=== PATIENT | male | born 1960 | race African-American/Black ===

== ENCOUNTER 2020-06-09 06:03 | Inpatient (IN) | payer MEDICAID, OTHER ==
[~2020-06-09] VITALS: Ht 182.9 cm; Wt 92.6 kg
[2020-06-09] MEDS ORDERED: LEVETIRACETAM 1000MG/100ML 100 ML IV ONE (06:30)
[2020-06-09 06:45] LABS: BASOPHILS % 0.2 % (0.0-2.0); EOSINOPHILS % 0.8 % (0.0-5.0); HEMATOCRIT. 46.3 % (42.0-52.0); HEMOGLOBIN. 15.5 g/dL (14.0-18.0); LYMPHOCYTES % 12.6 % (20.0-50.0); MEAN CORPUSCULAR HEMOGLOBIN 31.2 pg (28.0-32.0); MEAN CORPUSCULAR VOLUME 92.9 fL (80.0-94.0); MONOCYTES % 9.5 % (2.0-8.0); NEUTROPHILS % 76.9 % (40.0-76.0); PLATELET 221 x1000/uL (130-400); RED BLOOD CELL COUNT 4.98 mill/uL (4.7-6.1); RED CELL DISTRIBUTION WIDTH 14.2 % (11.6-14.6)
[2020-06-09] MEDS ORDERED: LORAZEPAM 2MG/ML CPJ IV ONE ×4 (06:45→09:15)
[2020-06-09 06:54] LABS: CHLORIDE 110 mEq/L (98-107)
[2020-06-09 06:57] LABS: ETHANOL BLOOD < 10 mg/dL
[2020-06-09 07:02] LABS: CREATINE KINASE 471 IU/L (39-308)
[2020-06-09] MEDS ORDERED: LORAZEPAM 2MG/ML CPJ ONE (08:36)
[2020-06-09 09:01] LABS: CLARITY URINE CLEAR (CLEAR); COLOR URINE YELLOW (YELLOW); KETONES URINE NEGATIVE (NEGATIVE); LEUKOCYTE ESTERASE URINE NEGATIVE (NEGATIVE); NITRITE URINE NEGATIVE (NEGATIVE); OCCULT BLOOD URINE 2+ (NEGATIVE); PH URINE 5.5 (4.5-8.0); PROTEIN URINE 2+ (NEGATIVE); SPECIFIC GRAVITY URINE 1.019 (1.005-1.030); UROBILINOGEN URINE 0.2 E.U./dL (0.2-1.0)
[2020-06-09] MEDS ORDERED: MIDAZOLAM HCL 100 MG in DEXT 5% WATER 80 ML IV ONE ×2 (10:00→10:15)
[2020-06-09] MEDS ORDERED: MIDAZOLAM HCL 2 MG/2 ML VIAL IV ONE (10:00)
[2020-06-09] MEDS ORDERED: PHENOBARBITAL SODIUM 65MG/ML 1ML IV ONE (10:00)
[2020-06-09] MEDS ORDERED: ETOMIDATE 2MG/ML 10ML VIAL IV ONE ×2 (10:00)
[2020-06-09] MEDS ORDERED: SUCCINYLCHOLINE CHLORIDE 200MG/10ML IV ONE ×2 (10:00)
[2020-06-09] MEDS ORDERED: ONDANSETRON HCL 4MG/2ML INJ IV PRN (10:15)
[2020-06-09] MEDS ORDERED: PHENOBARBITAL SODIUM 65MG/ML 1ML IV NR (10:45)
[2020-06-09 10:53] LABS: PHOSPHORUS 1.9 mg/dL (2.5-4.9)
[2020-06-09] MEDS: SODIUM CHLORIDE 0.9% 1,000 ML IV SCH ×2 (11:02→14:09)
[2020-06-09 11:22] LABS: BG BASE EXCESS -1.9 mmol/L (-2.0-2.0); BG CARBOXYHEMOGLOBIN 0.2 % (0.5-1.5); BG DEOXYHEMOGLOBIN 2.4 % (0.0-5.0); BG HCO3 ACT 22.9 mmol/L (22.0-26.0); BG METHEMOGLOBIN 0.2 % (0.0-1.5); BG OXYGEN SATURATION 97.6 % (92.0-98.5); BG OXYHEMOGLOBIN 97.2 % (94.0-97.0); BG PCO2 39.6 mmHg (35.0-45.0); BG PO2 107.3 mmHg (75.0-100.0); BG SAMPLE SITE RIGHT RADIAL; BG VENT MODE VENT - AC
[2020-06-09] MEDS ORDERED: SUMATRIPTAN SUCCINATE 6MG/0.5ML VIAL SUBCUT ONE (11:30)
[2020-06-09] MEDS: ENOXAPARIN 40MG/0.4ML SYR SUBCUT SCH (11:35)
[2020-06-09] MEDS ORDERED: DEXTROSE 50% WATER 50ML SYRINGE IV PRN (11:45)
[2020-06-09] MEDS ORDERED: NICARDIPINE 40MG/200ML PREMIX 200 ML IV PRN (11:45)
[2020-06-09] MEDS ORDERED: MIDAZOLAM HCL 100 MG in DEXT 5% WATER 80 ML IV PRN (12:15)
[2020-06-09] MEDS ORDERED: IPRATROPIUM/ALBUTEROL 0.5-3(2.5)MG/3ML NEB HHN PRN (12:15)
[2020-06-09] MEDS: BLOOD SUGAR DIAGNOSTIC STRIP TEST SCH ×3 (13:01→21:30)
[2020-06-09] MEDS: INSULIN LISPRO 100 UNITS/ML SUBCUT SCH ×3 (13:02→18:09)
[2020-06-09] MEDS: PANTOPRAZOLE SODIUM 40 MG/VIAL IV SCH (13:48)
[2020-06-09] MEDS: LACTULOSE 20G/30ML UDC PO SCH (14:18)
[2020-06-09 15:03] LABS: *AMPHETAMINES SCREEN URINE NEGATIVE (NEGATIVE); *BARBITURATES SCREEN URINE PRESUMTIVE POSITIVE (NEGATIVE); *BENZODIAZEPINES SCREEN URINE PRESUMTIVE POSITIVE (NEGATIVE); *COCAINE SCREEN URINE PRESUMTIVE POSITIVE (NEGATIVE); METHADONE URINE SCREEN NEGATIVE (NEGATIVE); OPIATES URINE SCREEN NEGATIVE (NEGATIVE); PHENCYCLIDINE URINE SCREEN NEGATIVE (NEGATIVE)
[2020-06-09 15:04] LABS: CANNABINOID URINE SCREEN NEGATIVE (NEGATIVE)
[2020-06-09] MEDS: IPRATROPIUM/ALBUTEROL 0.5-3(2.5)MG/3ML NEB HHN SCH ×2 (15:53→21:57)
[2020-06-09] MEDS: CLONIDINE 0.1MG TABLET PO PRN (20:04)
[2020-06-10] MEDS ORDERED: LORAZEPAM 2MG/ML CPJ ONE (01:06)
[2020-06-10] MEDS: IPRATROPIUM/ALBUTEROL 0.5-3(2.5)MG/3ML NEB HHN SCH ×4 (01:21→21:16)
[2020-06-10] MEDS ORDERED: FENTANYL CITRATE/PF 1,000 MCG in SODIUM CHLORIDE 0.9% 100 ML IV PRN (01:30)
[2020-06-10 04:32] LABS: HEMATOCRIT. 46.2 % (42.0-52.0); HEMOGLOBIN. 15.9 g/dL (14.0-18.0); MEAN CORPUSCULAR HEMOGLOBIN 31.3 pg (28.0-32.0); MEAN CORPUSCULAR VOLUME 91.2 fL (80.0-94.0); MEAN PLATELET VOLUME 9.1 fl (7.4-10.4); PLATELET 219 x1000/uL (130-400); RED BLOOD CELL COUNT 5.06 mill/uL (4.7-6.1); RED CELL DISTRIBUTION WIDTH 13.8 % (11.6-14.6)
[2020-06-10 04:35] LABS: CHLORIDE 106 mEq/L (98-107)
[2020-06-10 04:43] LABS: LDL CHOLESTEROL 111 mg/dL (5-100)
[2020-06-10 04:44] LABS: HDL CHOLESTEROL 80 mg/dL (40-59)
[2020-06-10] MEDS: LACTULOSE 20G/30ML UDC PO SCH ×3 (06:07→22:30)
[2020-06-10] MEDS: BLOOD SUGAR DIAGNOSTIC STRIP TEST SCH ×4 (06:30→21:00)
[2020-06-10] MEDS: INSULIN LISPRO 100 UNITS/ML SUBCUT SCH ×4 (07:00→21:00)
[2020-06-10] MEDS: AMLODIPINE 5MG TABLET PO SCH (09:40)
[2020-06-10] MEDS: ENOXAPARIN 40MG/0.4ML SYR SUBCUT SCH (09:41)
[2020-06-10] MEDS: PANTOPRAZOLE SODIUM 40 MG/VIAL IV SCH (09:45)
[2020-06-10] MEDS ORDERED: LIDOCAINE HCL 1% 20ML VIAL (Pyxis) INJ ONE (10:58)
[2020-06-10 11:32] LABS: PLATELET ESTIMATE NORMAL
[2020-06-10] MEDS: ACETAMINOPHEN 650MG/20.3ML UDC GT PRN ×2 (12:40→14:08)
[2020-06-10] MEDS: PIPERACILLIN/TAZOBACTAM 3.375 G in DEXT 5% WATER 100 ML IV SCH ×2 (16:28→22:30)
[2020-06-10] MEDS ORDERED: NICARDIPINE 40MG/200ML PREMIX 200 ML IV PRN (19:30)
[2020-06-10] MEDS: HYDRALAZINE HCL 25MG TABLET PO SCH (22:00)
[2020-06-10] MEDS ORDERED: PIPERACILLIN/TAZOBACTAM 3.375 G/VIAL IV SCH (22:00)
[2020-06-10 23:09] VITALS: BP 132/78
[2020-06-10 23:23] VITALS: BP 133/72
[2020-06-10 23:38] VITALS: BP 137/76
[2020-06-11] VITALS (66 sets, daily range): BP systolic 130–160; BP diastolic 63–91
[2020-06-11] MEDS ORDERED: NICARDIPINE 50 MG in SODIUM CHLORIDE 0.9% 230 ML IV PRN (00:15)
[2020-06-11] MEDS: SODIUM CHLORIDE 0.9% 1,000 ML IV SCH ×2 (00:49→20:00)
[2020-06-11] MEDS ORDERED: ESCI10TA61 MT (01:50)
[2020-06-11] MEDS ORDERED: LOSA50TA41 MT (01:50)
[2020-06-11] MEDS ORDERED: TRAZ-251 PO (01:50)
[2020-06-11] MEDS ORDERED: SIMV-43 MT (01:50)
[2020-06-11] MEDS ORDERED: CYCL10TA7 MT (01:50)
[2020-06-11] MEDS: IPRATROPIUM/ALBUTEROL 0.5-3(2.5)MG/3ML NEB HHN SCH ×4 (02:12→20:49)
[2020-06-11] MEDS: MIDAZOLAM HCL 100 MG in DEXT 5% WATER 80 ML IV PRN (02:26)
[2020-06-11] MEDS: PIPERACILLIN/TAZOBACTAM 3.375 G in DEXT 5% WATER 100 ML IV SCH ×4 (03:12→21:38)
[2020-06-11] MEDS: LACTULOSE 20G/30ML UDC PO SCH ×3 (05:24→21:37)
[2020-06-11] MEDS: HYDRALAZINE HCL 25MG TABLET PO SCH (05:24)
[2020-06-11 05:47] LABS: HEMATOCRIT. 45.6 % (42.0-52.0); HEMOGLOBIN. 15.6 g/dL (14.0-18.0); MEAN CORPUSCULAR HEMOGLOBIN 31.4 pg (28.0-32.0); MEAN CORPUSCULAR VOLUME 91.9 fL (80.0-94.0); MEAN PLATELET VOLUME 9.4 fl (7.4-10.4); PLATELET 204 x1000/uL (130-400); RED BLOOD CELL COUNT 4.96 mill/uL (4.7-6.1); RED CELL DISTRIBUTION WIDTH 14.1 % (11.6-14.6)
[2020-06-11 05:50] LABS: CHLORIDE 109 mEq/L (98-107)
[2020-06-11] MEDS: BLOOD SUGAR DIAGNOSTIC STRIP TEST SCH ×4 (07:50→20:00)
[2020-06-11 08:11] LABS: BG SAMPLE SITE Right Radial; BG TIDAL VOLUME(mL) 500 mL; BG VENT RATE 14 set
[2020-06-11 08:12] LABS: BG PEEP (cmH2O) 0 cmH2O
[2020-06-11 08:14] LABS: BG HCO3 ACT 24.4 mmol/L (22.0-26.0); BG PCO2 37.1 mmHg (35.0-45.0); BG PH 7.436 (7.350-7.450); BG PO2 102.9 mmHg (75.0-100.0)
[2020-06-11] MEDS: INSULIN LISPRO 100 UNITS/ML SUBCUT SCH ×4 (08:20→20:00)
[2020-06-11 08:29] LABS: BG BASE EXCESS 2.2 mmol/L (-2.0-2.0); BG CARBOXYHEMOGLOBIN 0.1 % (0.5-1.5); BG DEOXYHEMOGLOBIN 2.6 % (0.0-5.0); BG FRACTION INSPIRED OXYGEN 40; BG HCO3 ACT 27.3 mmol/L (22.0-26.0); BG METHEMOGLOBIN 0.1 % (0.0-1.5); BG OXYGEN SATURATION 97.4 % (92.0-98.5); BG OXYHEMOGLOBIN 97.2 % (94.0-97.0); BG PCO2 43.6 mmHg (35.0-45.0); BG PH 7.414 (7.350-7.450); BG PO2 96.7 mmHg (75.0-100.0); BG TOTAL HEMOGLOBIN 16.2 g/dL (12.0-18.0); BG VENT MODE VENT - AC
[2020-06-11 08:43] LABS: BG BASE EXCESS 0.5 mmol/L (-2.0-2.0); BG TOTAL HEMOGLOBIN 15.3 g/dL (12.0-18.0)
[2020-06-11 08:44] LABS: BG CARBOXYHEMOGLOBIN 0.3 % (0.5-1.5); BG METHEMOGLOBIN 0.3 % (0.0-1.5); BG OXYHEMOGLOBIN 97.4 % (94.0-97.0)
[2020-06-11 08:55] LABS: BG FRACTION INSPIRED OXYGEN 40
[2020-06-11] MEDS: CLONIDINE 0.1MG TABLET PO PRN ×2 (09:09→15:55)
[2020-06-11] MEDS: ENOXAPARIN 40MG/0.4ML SYR SUBCUT SCH (09:09)
[2020-06-11] MEDS: PANTOPRAZOLE SODIUM 40 MG/VIAL IV SCH (09:09)
[2020-06-11] MEDS: AMLODIPINE 5MG TABLET PO SCH (09:10)
[2020-06-11 09:25] LABS: PLATELET ESTIMATE NORMAL
[2020-06-11] MEDS ORDERED: POTASSIUM CHLORIDE 20MEQ/PACKET PO NR (15:00)
[2020-06-11] MEDS: THIAMINE HCL 100MG TABLET PO SCH (15:55)
[2020-06-11] MEDS: HYDRALAZINE HCL 50MG TABLET PO SCH ×2 (15:56→21:37)
[2020-06-11] MEDS ORDERED: METHYLPREDNISOLONE SOD SUCC 40 MG/ML VIAL IV SCH (16:00)
[2020-06-11 17:26] LABS: HEPATITIS B SURFACE ANTIGEN NEGATIVE
[2020-06-11 17:56] LABS: HEPATITIS A AB IGM NEGATIVE (NEGATIVE)
[2020-06-11] MEDS ORDERED: MANNITOL 20% (20GM/100ML) BAG 500ML PREMIX IV NR (19:30)
[2020-06-11] MEDS: ATORVASTATIN CALCIUM 40MG TABLET PO SCH (20:00)
[2020-06-11] MEDS: LEVETIRACETAM 500MG PREMIX 100 ML IV SCH (20:00)
[2020-06-11] MEDS: DEXAMETHASONE 10 MG/ML VIAL IV SCH ×2 (20:00→23:22)
[2020-06-12] VITALS (66 sets, daily range): BP systolic 85–160; BP diastolic 52–97
[2020-06-12] MEDS: IPRATROPIUM/ALBUTEROL 0.5-3(2.5)MG/3ML NEB HHN SCH ×3 (01:17→20:28)
[2020-06-12] MEDS: PIPERACILLIN/TAZOBACTAM 3.375 G in DEXT 5% WATER 100 ML IV SCH ×4 (03:28→22:20)
[2020-06-12] MEDS: LACTULOSE 20G/30ML UDC PO SCH ×3 (05:16→21:18)
[2020-06-12] MEDS: HYDRALAZINE HCL 50MG TABLET PO SCH ×3 (05:19→21:19)
[2020-06-12] MEDS: DEXAMETHASONE 10 MG/ML VIAL IV SCH ×3 (05:19→17:52)
[2020-06-12 05:57] LABS: HEMOGLOBIN. 14.9 g/dL (14.0-18.0); MEAN CORPUSCULAR HEMOGLOBIN 31.4 pg (28.0-32.0); MEAN PLATELET VOLUME 9.4 fl (7.4-10.4); PLATELET 217 x1000/uL (130-400); RED BLOOD CELL COUNT 4.73 mill/uL (4.7-6.1); RED CELL DISTRIBUTION WIDTH 14.3 % (11.6-14.6)
[2020-06-12] MEDS ORDERED: BACITRACIN 50,000 UNITS/VIAL ONE (07:28)
[2020-06-12] MEDS ORDERED: THROMBIN (BOVINE) 5000 UNITS/VIAL TOP ONE (07:28)
[2020-06-12 07:59] LABS: PLATELET ESTIMATE NORMAL
[2020-06-12] MEDS: AMLODIPINE 5MG TABLET PO SCH (08:08)
[2020-06-12] MEDS ORDERED: ROCURONIUM BROMIDE 10MG/ML VIAL 5ML IV ONE ×2 (08:27→09:19)
[2020-06-12] MEDS ORDERED: FENTANYL CITRATE/PF 50MCG/ML 2ML VIAL ONE ×2 (08:33→09:45)
[2020-06-12] MEDS ORDERED: CEFAZOLIN SODIUM 1000MG/VIAL ONE (08:43)
[2020-06-12] MEDS ORDERED: LABETALOL HCL 5MG/ML VIAL 20ML IV ONE (08:43)
[2020-06-12] MEDS ORDERED: DEXT 5%/0.45% NACL 1000ML 1,000 ML IV SCH (09:00)
[2020-06-12] MEDS ORDERED: DEXT 5%/LACTATED RINGERS 1,000 ML IV SCH (09:00)
[2020-06-12] MEDS ORDERED: PROPOFOL 200MG/20ML VIAL IV ONE (09:45)
[2020-06-12] MEDS ORDERED: BACITRACIN 15GM TUBE TOP ONE (09:55)
[2020-06-12 11:22] LABS: BG BASE EXCESS -3.4 mmol/L (-2.0-2.0); BG CARBOXYHEMOGLOBIN 0.3 % (0.5-1.5); BG DEOXYHEMOGLOBIN 3.4 % (0.0-5.0); BG FRACTION INSPIRED OXYGEN 40; BG METHEMOGLOBIN 0.2 % (0.0-1.5); BG OXYGEN SATURATION 96.6 % (92.0-98.5); BG OXYHEMOGLOBIN 96.1 % (94.0-97.0); BG PCO2 46.3 mmHg (35.0-45.0); BG PH 7.314 (7.350-7.450); BG PO2 96.3 mmHg (75.0-100.0); BG SAMPLE SITE ALINE; BG TOTAL HEMOGLOBIN 13.7 g/dL (12.0-18.0); BG VENT MODE VENT - AC
[2020-06-12] MEDS: BLOOD SUGAR DIAGNOSTIC STRIP TEST SCH ×2 (11:25→17:09)
[2020-06-12] MEDS: INSULIN LISPRO 100 UNITS/ML SUBCUT SCH ×2 (11:37→17:54)
[2020-06-12] MEDS: PANTOPRAZOLE SODIUM 40 MG/VIAL IV SCH (11:37)
[2020-06-12] MEDS: LEVETIRACETAM 500MG PREMIX 100 ML IV SCH ×2 (12:36→22:20)
[2020-06-12] MEDS: THIAMINE HCL 100MG TABLET PO SCH (12:41)
[2020-06-12] MEDS ORDERED: CEFAZOLIN SODIUM 1000MG/VIAL IV SCH (14:00)
[2020-06-12] MEDS: MIDAZOLAM HCL 100 MG in DEXT 5% WATER 80 ML IV PRN (14:28)
[2020-06-12] MEDS: CEFAZOLIN 1000MG PREMIX 50 ML IV SCH ×2 (14:43→21:17)
[2020-06-12] MEDS: ATORVASTATIN CALCIUM 40MG TABLET PO SCH (21:00)
[2020-06-13] VITALS (91 sets, daily range): BP systolic 4–183; BP diastolic 4–129
[2020-06-13] MEDS: BLOOD SUGAR DIAGNOSTIC STRIP TEST SCH ×5 (00:31→23:34)
[2020-06-13] MEDS: DEXAMETHASONE 10 MG/ML VIAL IV SCH ×5 (00:35→23:34)
[2020-06-13] MEDS: INSULIN LISPRO 100 UNITS/ML SUBCUT SCH ×5 (00:36→23:35)
[2020-06-13] MEDS ORDERED: VANCOMYCIN 1 G PREMIX 200 ML IV SCH ×2 (02:00→21:00)
[2020-06-13] MEDS: IPRATROPIUM/ALBUTEROL 0.5-3(2.5)MG/3ML NEB HHN SCH ×4 (02:19→20:03)
[2020-06-13] MEDS: PIPERACILLIN/TAZOBACTAM 3.375 G in DEXT 5% WATER 100 ML IV SCH ×4 (04:30→22:05)
[2020-06-13 05:40] LABS: HEMATOCRIT. 40.8 % (42.0-52.0); HEMOGLOBIN. 13.5 g/dL (14.0-18.0); MEAN CORPUSCULAR HEMOGLOBIN 31.1 pg (28.0-32.0); MEAN PLATELET VOLUME 9.6 fl (7.4-10.4); PLATELET 217 x1000/uL (130-400); RED BLOOD CELL COUNT 4.34 mill/uL (4.7-6.1); RED CELL DISTRIBUTION WIDTH 14.7 % (11.6-14.6)
[2020-06-13] MEDS: CEFAZOLIN 1000MG PREMIX 50 ML IV SCH ×3 (06:38→21:40)
[2020-06-13] MEDS: LACTULOSE 20G/30ML UDC PO SCH ×3 (06:38→22:06)
[2020-06-13] MEDS: HYDRALAZINE HCL 50MG TABLET PO SCH ×3 (06:42→22:04)
[2020-06-13] MEDS: LEVETIRACETAM 500MG PREMIX 100 ML IV SCH ×2 (08:58→20:28)
[2020-06-13] MEDS: PANTOPRAZOLE SODIUM 40 MG/VIAL IV SCH (08:58)
[2020-06-13] MEDS: AMLODIPINE 5MG TABLET PO SCH (09:00)
[2020-06-13] MEDS: THIAMINE HCL 100MG TABLET PO SCH (09:00)
[2020-06-13 09:16] LABS: BG BASE EXCESS -0.1 mmol/L (-2.0-2.0); BG CARBOXYHEMOGLOBIN 0.1 % (0.5-1.5); BG DEOXYHEMOGLOBIN 2.7 % (0.0-5.0); BG FRACTION INSPIRED OXYGEN 40; BG HCO3 ACT 23.2 mmol/L (22.0-26.0); BG METHEMOGLOBIN 0.2 % (0.0-1.5); BG OXYGEN SATURATION 97.3 % (92.0-98.5); BG PH 7.452 (7.350-7.450); BG PO2 93.3 mmHg (75.0-100.0); BG SAMPLE SITE LEFT RADIAL; BG TOTAL HEMOGLOBIN 13.8 g/dL (12.0-18.0); BG VENT MODE VENT - AC
[2020-06-13] MEDS: NICARDIPINE 100 MG in SODIUM CHLORIDE 0.9% 60 ML IV PRN ×2 (10:44→17:16)
[2020-06-13] MEDS: MIDAZOLAM HCL 100 MG in DEXT 5% WATER 80 ML IV PRN (10:45)
[2020-06-13] MEDS: DEXT 5%/0.45% NACL 1000ML 1,000 ML IV SCH ×2 (10:50→20:28)
[2020-06-13 11:00] LABS: PLATELET ESTIMATE NORMAL
[2020-06-13] MEDS: MORPHINE SULFATE 4 MG/ML CPJ (NOT FOR IM USE) IV PRN (13:56)
[2020-06-13] MEDS ORDERED: VANCOMYCIN 750 MG PREMIX 150 ML IV SCH (14:00)
[2020-06-13 17:02] LABS: CLARITY URINE CLEAR (CLEAR); COLOR URINE YELLOW (YELLOW); KETONES URINE NEGATIVE (NEGATIVE); LEUKOCYTE ESTERASE URINE NEGATIVE (NEGATIVE); NITRITE URINE NEGATIVE (NEGATIVE); OCCULT BLOOD URINE TRACE (NEGATIVE); PROTEIN URINE 1+ (NEGATIVE); SPECIFIC GRAVITY URINE 1.026 (1.005-1.030); UROBILINOGEN URINE 0.2 E.U./dL (0.2-1.0)
[2020-06-13] MEDS: PROPOFOL 10MG/ML 100ML 100 ML IV PRN (17:15)
[2020-06-13] MEDS: ATORVASTATIN CALCIUM 40MG TABLET PO SCH (20:28)
[2020-06-14] VITALS (114 sets, daily range): BP systolic 80–162; BP diastolic 54–100
[2020-06-14] MEDS: NICARDIPINE 100 MG in SODIUM CHLORIDE 0.9% 60 ML IV PRN ×4 (01:07→23:29)
[2020-06-14] MEDS: IPRATROPIUM/ALBUTEROL 0.5-3(2.5)MG/3ML NEB HHN SCH ×4 (01:34→21:29)
[2020-06-14] MEDS: PIPERACILLIN/TAZOBACTAM 3.375 G in DEXT 5% WATER 100 ML IV SCH ×2 (04:03→10:24)
[2020-06-14 05:00] LABS: HEMATOCRIT. 38.1 % (42.0-52.0); HEMOGLOBIN. 12.7 g/dL (14.0-18.0); MEAN CORPUSCULAR HEMOGLOBIN 31.4 pg (28.0-32.0); MEAN CORPUSCULAR VOLUME 94.3 fL (80.0-94.0); MEAN PLATELET VOLUME 9.7 fl (7.4-10.4); PLATELET 194 x1000/uL (130-400); RED BLOOD CELL COUNT 4.03 mill/uL (4.7-6.1); RED CELL DISTRIBUTION WIDTH 14.3 % (11.6-14.6)
[2020-06-14 05:07] LABS: CHLORIDE 119 mEq/L (98-107)
[2020-06-14 05:11] LABS: PHOSPHORUS 3.6 mg/dL (2.5-4.9)
[2020-06-14 05:14] LABS: CREATINE KINASE 716 IU/L (39-308); T4 FREE 0.89 ng/dL (0.76-1.46)
[2020-06-14] MEDS: CEFAZOLIN 1000MG PREMIX 50 ML IV SCH (05:14)
[2020-06-14] MEDS: BLOOD SUGAR DIAGNOSTIC STRIP TEST SCH ×4 (05:19→23:04)
[2020-06-14] MEDS: INSULIN LISPRO 100 UNITS/ML SUBCUT SCH ×4 (05:19→23:30)
[2020-06-14] MEDS: HYDRALAZINE HCL 50MG TABLET PO SCH ×3 (05:55→21:03)
[2020-06-14] MEDS: LACTULOSE 20G/30ML UDC PO SCH ×3 (05:55→21:03)
[2020-06-14] MEDS: DEXAMETHASONE 10 MG/ML VIAL IV SCH ×4 (05:55→23:29)
[2020-06-14] MEDS: DEXT 5%/0.45% NACL 1000ML 1,000 ML IV SCH ×2 (06:10→17:17)
[2020-06-14] MEDS: PROPOFOL 10MG/ML 100ML 100 ML IV PRN ×4 (06:44→23:45)
[2020-06-14] MEDS: THIAMINE HCL 100MG TABLET PO SCH (08:32)
[2020-06-14] MEDS: PANTOPRAZOLE SODIUM 40 MG/VIAL IV SCH (08:33)
[2020-06-14] MEDS: AMLODIPINE 5MG TABLET PO SCH (08:33)
[2020-06-14] MEDS: LEVETIRACETAM 500MG PREMIX 100 ML IV SCH ×2 (08:36→20:41)
[2020-06-14 08:56] LABS: BG BASE EXCESS -0.1 mmol/L (-2.0-2.0); BG CARBOXYHEMOGLOBIN 0.1 % (0.5-1.5); BG DEOXYHEMOGLOBIN 2.9 % (0.0-5.0); BG FRACTION INSPIRED OXYGEN 60; BG HCO3 ACT 23.8 mmol/L (22.0-26.0); BG METHEMOGLOBIN 0.3 % (0.0-1.5); BG OXYGEN SATURATION 97.1 % (92.0-98.5); BG OXYHEMOGLOBIN 96.7 % (94.0-97.0); BG PCO2 36.5 mmHg (35.0-45.0); BG PH 7.432 (7.350-7.450); BG PO2 94.1 mmHg (75.0-100.0); BG SAMPLE SITE LEFT RADIAL; BG TOTAL HEMOGLOBIN 13.4 g/dL (12.0-18.0); BG VENT MODE VENT - AC
[2020-06-14 09:06] LABS: ANTI-NUCLEAR ANTIBODIES DIRECT Negative (Negative)
[2020-06-14] MEDS: MORPHINE SULFATE 4 MG/ML CPJ (NOT FOR IM USE) IV PRN ×2 (09:16→15:12)
[2020-06-14 09:58] LABS: PLATELET ESTIMATE NORMAL
[2020-06-14 14:34] LABS: BG BASE EXCESS 1.5 mmol/L (-2.0-2.0); BG CARBOXYHEMOGLOBIN 0.6 % (0.5-1.5); BG DEOXYHEMOGLOBIN 4.9 % (0.0-5.0); BG FRACTION INSPIRED OXYGEN 80; BG HCO3 ACT 25.3 mmol/L (22.0-26.0); BG METHEMOGLOBIN 0.1 % (0.0-1.5); BG OXYGEN SATURATION 95.1 % (92.0-98.5); BG OXYHEMOGLOBIN 94.4 % (94.0-97.0); BG PH 7.452 (7.350-7.450); BG SAMPLE SITE ALINE; BG TOTAL HEMOGLOBIN 12.8 g/dL (12.0-18.0); BG VENT MODE VENT - AC
[2020-06-14 15:08] LABS: ATYPICAL P-ANCA <1:20 titer (Neg:<1:20); CYTOPLASMIC C-ANCA <1:20 titer (Neg:<1:20); PERINUCLEAR P-ANCA <1:20 titer (Neg:<1:20)
[2020-06-14] MEDS: MEROPENEM 1,000 MG in SODIUM CHLORIDE 0.9% 100 ML IV SCH ×2 (15:21→21:03)
[2020-06-14] MEDS: ATORVASTATIN CALCIUM 40MG TABLET PO SCH (20:42)
[2020-06-15] VITALS (95 sets, daily range): BP systolic 0–154; BP diastolic 0–93
[2020-06-15] MEDS: IPRATROPIUM/ALBUTEROL 0.5-3(2.5)MG/3ML NEB HHN SCH ×4 (02:47→19:45)
[2020-06-15] MEDS: NICARDIPINE 100 MG in SODIUM CHLORIDE 0.9% 60 ML IV PRN ×3 (04:07→18:28)
[2020-06-15] MEDS: PROPOFOL 10MG/ML 100ML 100 ML IV PRN ×5 (04:10→21:40)
[2020-06-15 04:30] LABS: HEMATOCRIT. 37.7 % (42.0-52.0); HEMOGLOBIN. 12.8 g/dL (14.0-18.0); MEAN CORPUSCULAR HEMOGLOBIN 31.4 pg (28.0-32.0); MEAN CORPUSCULAR VOLUME 92.6 fL (80.0-94.0); MEAN PLATELET VOLUME 9.6 fl (7.4-10.4); PLATELET 244 x1000/uL (130-400); RED BLOOD CELL COUNT 4.07 mill/uL (4.7-6.1); RED CELL DISTRIBUTION WIDTH 14.6 % (11.6-14.6)
[2020-06-15] MEDS: DEXAMETHASONE 10 MG/ML VIAL IV SCH ×4 (06:00→23:26)
[2020-06-15] MEDS: BLOOD SUGAR DIAGNOSTIC STRIP TEST SCH ×4 (06:07→23:26)
[2020-06-15] MEDS: LACTULOSE 20G/30ML UDC PO SCH ×3 (06:21→21:40)
[2020-06-15] MEDS: MEROPENEM 1,000 MG in SODIUM CHLORIDE 0.9% 100 ML IV SCH ×3 (06:21→21:41)
[2020-06-15] MEDS: HYDRALAZINE HCL 50MG TABLET PO SCH ×3 (06:21→21:40)
[2020-06-15] MEDS: INSULIN LISPRO 100 UNITS/ML SUBCUT SCH ×4 (06:22→23:27)
[2020-06-15] MEDS: DEXT 5%/0.45% NACL 1000ML 1,000 ML IV SCH ×2 (08:01→21:52)
[2020-06-15] MEDS: AMLODIPINE 5MG TABLET PO SCH (08:35)
[2020-06-15] MEDS: PANTOPRAZOLE SODIUM 40 MG/VIAL IV SCH (08:36)
[2020-06-15] MEDS: THIAMINE HCL 100MG TABLET PO SCH (08:41)
[2020-06-15 09:07] LABS: CHLORIDE 119 mEq/L (98-107)
[2020-06-15 09:13] LABS: PHOSPHORUS 2.3 mg/dL (2.5-4.9)
[2020-06-15 09:15] LABS: BG BASE EXCESS -0.3 mmol/L (-2.0-2.0); BG CARBOXYHEMOGLOBIN 0.2 % (0.5-1.5); BG DEOXYHEMOGLOBIN 4.2 % (0.0-5.0); BG FRACTION INSPIRED OXYGEN 80; BG HCO3 ACT 22.9 mmol/L (22.0-26.0); BG METHEMOGLOBIN 0.3 % (0.0-1.5); BG OXYGEN SATURATION 95.8 % (92.0-98.5); BG OXYHEMOGLOBIN 95.3 % (94.0-97.0); BG PCO2 32.9 mmHg (35.0-45.0); BG PO2 78.5 mmHg (75.0-100.0); BG SAMPLE SITE RIGHT RADIAL; BG TOTAL HEMOGLOBIN 13.3 g/dL (12.0-18.0); BG VENT MODE VENT - AC
[2020-06-15] MEDS: LEVETIRACETAM 500MG PREMIX 100 ML IV SCH ×2 (09:39→20:48)
[2020-06-15 14:50] LABS: PLATELET ESTIMATE NORMAL
[2020-06-15] MEDS: ATORVASTATIN CALCIUM 40MG TABLET PO SCH (20:48)
[2020-06-15] MEDS: CLONIDINE 0.1MG TABLET PO SCH (21:40)
[2020-06-16] VITALS (93 sets, daily range): BP systolic 112–149; BP diastolic 61–80
[2020-06-16] MEDS: PROPOFOL 10MG/ML 100ML 100 ML IV PRN ×6 (01:05→21:23)
[2020-06-16] MEDS: IPRATROPIUM/ALBUTEROL 0.5-3(2.5)MG/3ML NEB HHN SCH ×5 (02:09→20:22)
[2020-06-16] MEDS: NICARDIPINE 100 MG in SODIUM CHLORIDE 0.9% 60 ML IV PRN ×2 (02:45→17:49)
[2020-06-16 05:49] LABS: HEMATOCRIT. 35.2 % (42.0-52.0); HEMOGLOBIN. 11.7 g/dL (14.0-18.0); MEAN CORPUSCULAR HEMOGLOBIN 31.1 pg (28.0-32.0); MEAN CORPUSCULAR VOLUME 93.5 fL (80.0-94.0); PLATELET 173 x1000/uL (130-400); RED BLOOD CELL COUNT 3.77 mill/uL (4.7-6.1); RED CELL DISTRIBUTION WIDTH 14.3 % (11.6-14.6)
[2020-06-16] MEDS: MEROPENEM 1,000 MG in SODIUM CHLORIDE 0.9% 100 ML IV SCH ×3 (06:10→21:39)
[2020-06-16] MEDS: CLONIDINE 0.1MG TABLET PO SCH ×3 (06:11→21:39)
[2020-06-16] MEDS: LACTULOSE 20G/30ML UDC PO SCH ×3 (06:11→21:40)
[2020-06-16] MEDS: HYDRALAZINE HCL 50MG TABLET PO SCH ×3 (06:11→21:39)
[2020-06-16] MEDS: BLOOD SUGAR DIAGNOSTIC STRIP TEST SCH ×4 (06:11→23:21)
[2020-06-16] MEDS: INSULIN LISPRO 100 UNITS/ML SUBCUT SCH ×4 (06:12→23:22)
[2020-06-16] MEDS: DEXAMETHASONE 10 MG/ML VIAL IV SCH ×4 (06:14→23:21)
[2020-06-16 06:45] LABS: CHLORIDE 118 mEq/L (98-107)
[2020-06-16 06:51] LABS: PHOSPHORUS 3.5 mg/dL (2.5-4.9)
[2020-06-16] MEDS: LEVETIRACETAM 500MG PREMIX 100 ML IV SCH ×2 (08:21→20:16)
[2020-06-16] MEDS: AMLODIPINE 5MG TABLET PO SCH (08:21)
[2020-06-16] MEDS: PANTOPRAZOLE SODIUM 40 MG/VIAL IV SCH (08:21)
[2020-06-16] MEDS: THIAMINE HCL 100MG TABLET PO SCH (08:22)
[2020-06-16 09:14] LABS: PLATELET ESTIMATE NORMAL
[2020-06-16 09:35] LABS: BG BASE EXCESS -0.2 mmol/L (-2.0-2.0); BG CARBOXYHEMOGLOBIN 0.2 % (0.5-1.5); BG DEOXYHEMOGLOBIN 1.5 % (0.0-5.0); BG FRACTION INSPIRED OXYGEN 75; BG HCO3 ACT 23.3 mmol/L (22.0-26.0); BG METHEMOGLOBIN 0.3 % (0.0-1.5); BG OXYGEN SATURATION 98.5 % (92.0-98.5); BG PCO2 34.4 mmHg (35.0-45.0); BG PH 7.449 (7.350-7.450); BG PO2 132.7 mmHg (75.0-100.0); BG SAMPLE SITE LEFT RADIAL; BG TOTAL HEMOGLOBIN 12.1 g/dL (12.0-18.0); BG VENT MODE VENT - AC
[2020-06-16] MEDS: DEXT 5%/0.45% NACL 1000ML 1,000 ML IV SCH ×2 (12:31→22:29)
[2020-06-16 17:09] LABS: ANTI-MYELOPEROXIDASE AB < 9.0 U/mL (0.0-9.0); ANTI-PROTEINASE 3 ABS < 3.5 U/mL (0.0-3.5)
[2020-06-16] MEDS: ATORVASTATIN CALCIUM 40MG TABLET PO SCH (20:16)
[2020-06-17] VITALS (95 sets, daily range): BP systolic 93–162; BP diastolic 62–95
[2020-06-17] MEDS: PROPOFOL 10MG/ML 100ML 100 ML IV PRN ×5 (00:52→21:04)
[2020-06-17] MEDS: NICARDIPINE 100 MG in SODIUM CHLORIDE 0.9% 60 ML IV PRN ×2 (01:39→09:26)
[2020-06-17] MEDS: IPRATROPIUM/ALBUTEROL 0.5-3(2.5)MG/3ML NEB HHN SCH ×4 (02:05→21:24)
[2020-06-17] MEDS: DEXAMETHASONE 10 MG/ML VIAL IV SCH ×4 (05:17→23:40)
[2020-06-17] MEDS: MEROPENEM 1,000 MG in SODIUM CHLORIDE 0.9% 100 ML IV SCH ×3 (05:17→21:06)
[2020-06-17] MEDS: LACTULOSE 20G/30ML UDC PO SCH ×3 (05:17→21:04)
[2020-06-17] MEDS: CLONIDINE 0.1MG TABLET PO SCH ×2 (05:17→14:00)
[2020-06-17] MEDS: HYDRALAZINE HCL 50MG TABLET PO SCH ×3 (05:17→21:05)
[2020-06-17] MEDS: BLOOD SUGAR DIAGNOSTIC STRIP TEST SCH ×3 (05:18→17:21)
[2020-06-17] MEDS: INSULIN LISPRO 100 UNITS/ML SUBCUT SCH ×4 (05:18→23:41)
[2020-06-17 05:44] LABS: HEMATOCRIT. 35.7 % (42.0-52.0); HEMOGLOBIN. 11.9 g/dL (14.0-18.0); MEAN CORPUSCULAR HEMOGLOBIN 31.3 pg (28.0-32.0); MEAN CORPUSCULAR VOLUME 93.9 fL (80.0-94.0); MEAN PLATELET VOLUME 9.9 fl (7.4-10.4); PLATELET 196 x1000/uL (130-400); RED CELL DISTRIBUTION WIDTH 14.5 % (11.6-14.6)
[2020-06-17 05:58] LABS: CHLORIDE 117 mEq/L (98-107)
[2020-06-17 06:12] LABS: PHOSPHORUS 3.2 mg/dL (2.5-4.9)
[2020-06-17 06:53] LABS: CREATINE KINASE 1863 IU/L (39-308)
[2020-06-17] MEDS: LEVETIRACETAM 500MG PREMIX 100 ML IV SCH ×2 (08:21→20:15)
[2020-06-17] MEDS: THIAMINE HCL 100MG TABLET PO SCH (08:21)
[2020-06-17] MEDS: PANTOPRAZOLE SODIUM 40 MG/VIAL IV SCH (08:21)
[2020-06-17] MEDS: METOCLOPRAMIDE HCL 10MG/2ML VIAL IV SCH ×3 (08:26→21:04)
[2020-06-17] MEDS: DEXT 5%/0.45% NACL 1000ML 1,000 ML IV SCH ×2 (08:26→17:04)
[2020-06-17 08:47] LABS: BG BASE EXCESS -1.5 mmol/L (-2.0-2.0); BG CARBOXYHEMOGLOBIN 0.3 % (0.5-1.5); BG FRACTION INSPIRED OXYGEN 75; BG HCO3 ACT 22.4 mmol/L (22.0-26.0); BG METHEMOGLOBIN 0.3 % (0.0-1.5); BG OXYHEMOGLOBIN 97.4 % (94.0-97.0); BG PCO2 35.3 mmHg (35.0-45.0); BG PH 7.421 (7.350-7.450); BG PO2 123.2 mmHg (75.0-100.0); BG SAMPLE SITE RIGHT RADIAL; BG TOTAL HEMOGLOBIN 12.2 g/dL (12.0-18.0); BG VENT MODE VENT - AC
[2020-06-17] MEDS ORDERED: AMLODIPINE 10MG TABLET PO SCH (09:00)
[2020-06-17] MEDS ORDERED: ALBUTEROL 6.7GM HFA INHALER ORI PRN (11:45)
[2020-06-17 11:56] LABS: PLATELET ESTIMATE NORMAL
[2020-06-17] MEDS ORDERED: DILTIAZEM HCL 5MG/ML 5ML VIAL IV SCH (13:45)
[2020-06-17] MEDS ORDERED: AMIODARONE HCL 50MG/ML 3ML VIAL IV ONE (14:45)
[2020-06-17] MEDS: METOPROLOL TARTRATE 25MG TABLET PO SCH ×2 (14:51→20:16)
[2020-06-17] MEDS ORDERED: AMIODARONE HCL 150 MG in DEXT 5% WATER 100 ML IV NR (15:00)
[2020-06-17] MEDS ORDERED: AMIODARONE HCL 900 MG in DEXT 5% WATER 482 ML IV PRN (17:00)
[2020-06-17] MEDS: ATORVASTATIN CALCIUM 40MG TABLET PO SCH (20:16)
[2020-06-17] MEDS: CLONIDINE 0.2MG TABLET PO SCH (21:05)
[2020-06-18] VITALS (91 sets, daily range): BP systolic 99–157; BP diastolic 55–99
[2020-06-18] MEDS: BLOOD SUGAR DIAGNOSTIC STRIP TEST SCH ×5 (00:10→20:41)
[2020-06-18] MEDS: PROPOFOL 10MG/ML 100ML 100 ML IV PRN ×5 (01:25→22:46)
[2020-06-18] MEDS: IPRATROPIUM/ALBUTEROL 0.5-3(2.5)MG/3ML NEB HHN SCH ×4 (02:34→20:11)
[2020-06-18] MEDS: LACTULOSE 20G/30ML UDC PO SCH ×3 (04:58→21:09)
[2020-06-18] MEDS: MEROPENEM 1,000 MG in SODIUM CHLORIDE 0.9% 100 ML IV SCH ×3 (04:58→21:08)
[2020-06-18] MEDS: DEXAMETHASONE 10 MG/ML VIAL IV SCH ×3 (04:59→17:31)
[2020-06-18] MEDS: METOCLOPRAMIDE HCL 10MG/2ML VIAL IV SCH ×3 (04:59→21:08)
[2020-06-18] MEDS: HYDRALAZINE HCL 50MG TABLET PO SCH ×3 (05:00→21:09)
[2020-06-18] MEDS: CLONIDINE 0.2MG TABLET PO SCH ×3 (05:00→21:09)
[2020-06-18] MEDS: INSULIN LISPRO 100 UNITS/ML SUBCUT SCH ×3 (05:02→17:32)
[2020-06-18 05:05] LABS: HEMOGLOBIN. 11.6 g/dL (14.0-18.0); MEAN PLATELET VOLUME 9.6 fl (7.4-10.4); PLATELET 198 x1000/uL (130-400); RED BLOOD CELL COUNT 3.72 mill/uL (4.7-6.1); RED CELL DISTRIBUTION WIDTH 14.8 % (11.6-14.6)
[2020-06-18 05:16] LABS: CHLORIDE 121 mEq/L (98-107)
[2020-06-18 05:21] LABS: PHOSPHORUS 3.1 mg/dL (2.5-4.9)
[2020-06-18 07:30] LABS: BG BASE EXCESS 1.5 mmol/L (-2.0-2.0); BG CARBOXYHEMOGLOBIN 0.3 % (0.5-1.5); BG DEOXYHEMOGLOBIN 2.9 % (0.0-5.0); BG HCO3 ACT 25.6 mmol/L (22.0-26.0); BG METHEMOGLOBIN 0.2 % (0.0-1.5); BG OXYGEN SATURATION 97.1 % (92.0-98.5); BG OXYHEMOGLOBIN 96.6 % (94.0-97.0); BG PCO2 38.6 mmHg (35.0-45.0); BG PO2 95.5 mmHg (75.0-100.0); BG SAMPLE SITE RIGHT RADIAL; BG TOTAL HEMOGLOBIN 13.1 g/dL (12.0-18.0); BG TOTAL RESPIRATORY RATE 16 b/min; BG VENT MODE VENT - AC
[2020-06-18 08:36] LABS: PLATELET ESTIMATE NORMAL
[2020-06-18] MEDS: LEVETIRACETAM 500MG PREMIX 100 ML IV SCH ×2 (08:57→20:23)
[2020-06-18] MEDS: AMLODIPINE 5MG TABLET PO SCH (08:57)
[2020-06-18] MEDS: THIAMINE HCL 100MG TABLET PO SCH (08:58)
[2020-06-18] MEDS: PANTOPRAZOLE SODIUM 40 MG/VIAL IV SCH (08:58)
[2020-06-18] MEDS ORDERED: METOPROLOL TARTRATE 50MG TABLET PO SCH (09:00)
[2020-06-18] MEDS: DEXTROSE 5% WATER 1,000 ML IV SCH (09:04)
[2020-06-18] MEDS: NICARDIPINE 100 MG in SODIUM CHLORIDE 0.9% 60 ML IV PRN (13:00)
[2020-06-18] MEDS: ACETYLCYSTEINE 100MG/ML 10% VIAL 4ML INH SCH (14:52)
[2020-06-18] MEDS ORDERED: DEXTROSE 50% WATER 50ML SYRINGE IV PRN (17:15)
[2020-06-18] MEDS: METOPROLOL TARTRATE 50MG TABLET PO SCH (20:24)
[2020-06-18] MEDS: ATORVASTATIN CALCIUM 40MG TABLET PO SCH (20:24)
[2020-06-18] MEDS ORDERED: PROPOFOL 10MG/ML 100ML 100 ML IV PRN (22:45)
[2020-06-19] VITALS (125 sets, daily range): BP systolic 94–227; BP diastolic 20–143
[2020-06-19] MEDS: DEXAMETHASONE 10 MG/ML VIAL IV SCH ×4 (00:13→17:07)
[2020-06-19] MEDS: DEXTROSE 5% WATER 1,000 ML IV SCH ×2 (00:14→12:15)
[2020-06-19] MEDS: INSULIN LISPRO 100 UNITS/ML SUBCUT SCH ×4 (00:14→17:18)
[2020-06-19] MEDS: ACETYLCYSTEINE 100MG/ML 10% VIAL 4ML INH SCH (00:50)
[2020-06-19] MEDS: IPRATROPIUM/ALBUTEROL 0.5-3(2.5)MG/3ML NEB HHN SCH ×4 (00:50→20:15)
[2020-06-19 05:40] LABS: HEMATOCRIT. 36.5 % (42.0-52.0); MEAN CORPUSCULAR VOLUME 94.4 fL (80.0-94.0); MEAN PLATELET VOLUME 10.5 fl (7.4-10.4); PLATELET 189 x1000/uL (130-400); RED BLOOD CELL COUNT 3.86 mill/uL (4.7-6.1); RED CELL DISTRIBUTION WIDTH 14.6 % (11.6-14.6)
[2020-06-19 05:48] LABS: CHLORIDE 118 mEq/L (98-107)
[2020-06-19 05:53] LABS: PHOSPHORUS 3.5 mg/dL (2.5-4.9)
[2020-06-19] MEDS: HYDRALAZINE HCL 50MG TABLET PO SCH ×3 (06:05→22:13)
[2020-06-19] MEDS: LACTULOSE 20G/30ML UDC PO SCH ×3 (06:05→20:23)
[2020-06-19] MEDS: CLONIDINE 0.2MG TABLET PO SCH ×3 (06:05→22:13)
[2020-06-19] MEDS: MEROPENEM 1,000 MG in SODIUM CHLORIDE 0.9% 100 ML IV SCH ×3 (06:05→22:20)
[2020-06-19] MEDS: BLOOD SUGAR DIAGNOSTIC STRIP TEST SCH ×4 (06:08→20:22)
[2020-06-19] MEDS: METOCLOPRAMIDE HCL 10MG/2ML VIAL IV SCH ×3 (06:08→22:13)
[2020-06-19] MEDS ORDERED: AMIODARONE HCL 900 MG in DEXT 5% WATER 482 ML IV PRN (08:30)
[2020-06-19] MEDS: AMLODIPINE 5MG TABLET PO SCH (08:40)
[2020-06-19] MEDS: PANTOPRAZOLE SODIUM 40 MG/VIAL IV SCH ×2 (08:40→17:07)
[2020-06-19] MEDS: THIAMINE HCL 100MG TABLET PO SCH (08:40)
[2020-06-19] MEDS: LEVETIRACETAM 500MG PREMIX 100 ML IV SCH ×2 (08:40→20:20)
[2020-06-19] MEDS: METOPROLOL TARTRATE 50MG TABLET PO SCH ×3 (08:41→22:00)
[2020-06-19] MEDS: PROPOFOL 10MG/ML 100ML 100 ML IV PRN ×2 (08:56→22:25)
[2020-06-19 13:03] LABS: PLATELET ESTIMATE NORMAL
[2020-06-19] MEDS: NICARDIPINE 100 MG in SODIUM CHLORIDE 0.9% 60 ML IV PRN (15:39)
[2020-06-19] MEDS: ATORVASTATIN CALCIUM 40MG TABLET PO SCH (20:20)
[2020-06-20] VITALS (104 sets, daily range): BP systolic 100–200; BP diastolic 49–127
[2020-06-20] MEDS: DEXAMETHASONE 10 MG/ML VIAL IV SCH ×5 (00:24→23:37)
[2020-06-20] MEDS: DEXTROSE 5% WATER 1,000 ML IV SCH ×2 (00:45→14:30)
[2020-06-20] MEDS: ACETYLCYSTEINE 100MG/ML 10% VIAL 4ML INH SCH ×4 (01:57→20:15)
[2020-06-20] MEDS: IPRATROPIUM/ALBUTEROL 0.5-3(2.5)MG/3ML NEB HHN SCH ×4 (01:57→20:14)
[2020-06-20] MEDS: NICARDIPINE 100 MG in SODIUM CHLORIDE 0.9% 60 ML IV PRN ×2 (04:00→13:16)
[2020-06-20] MEDS: LACTULOSE 20G/30ML UDC PO SCH (05:53)
[2020-06-20] MEDS: METOCLOPRAMIDE HCL 10MG/2ML VIAL IV SCH ×3 (05:59→22:09)
[2020-06-20] MEDS: HYDRALAZINE HCL 50MG TABLET PO SCH ×3 (06:00→22:23)
[2020-06-20] MEDS: CLONIDINE 0.2MG TABLET PO SCH ×3 (06:00→22:23)
[2020-06-20] MEDS: INSULIN LISPRO 100 UNITS/ML SUBCUT SCH ×5 (06:00→23:37)
[2020-06-20] MEDS: BLOOD SUGAR DIAGNOSTIC STRIP TEST SCH ×4 (06:03→23:37)
[2020-06-20 06:16] LABS: HEMATOCRIT. 38.9 % (42.0-52.0); HEMOGLOBIN. 12.8 g/dL (14.0-18.0); MEAN CORPUSCULAR HEMOGLOBIN 30.6 pg (28.0-32.0); MEAN CORPUSCULAR VOLUME 92.6 fL (80.0-94.0); MEAN PLATELET VOLUME 8.7 fl (7.4-10.4); PLATELET 141 x1000/uL (130-400); RED CELL DISTRIBUTION WIDTH 14.4 % (11.6-14.6)
[2020-06-20 06:22] LABS: CHLORIDE 117 mEq/L (98-107)
[2020-06-20 06:37] LABS: PHOSPHORUS 3.3 mg/dL (2.5-4.9)
[2020-06-20] MEDS: PROPOFOL 10MG/ML 100ML 100 ML IV PRN ×2 (07:53→17:56)
[2020-06-20 08:32] LABS: PLATELET ESTIMATE NORMAL
[2020-06-20] MEDS: PANTOPRAZOLE SODIUM 40 MG/VIAL IV SCH ×2 (08:50→18:09)
[2020-06-20] MEDS: LEVETIRACETAM 500MG PREMIX 100 ML IV SCH ×2 (08:50→22:09)
[2020-06-20] MEDS: METOPROLOL TARTRATE 50MG TABLET PO SCH ×2 (09:00→20:50)
[2020-06-20] MEDS: AMLODIPINE 5MG TABLET PO SCH (09:00)
[2020-06-20] MEDS: THIAMINE HCL 100MG TABLET PO SCH (09:00)
[2020-06-20 12:14] LABS: BG BASE EXCESS 4.5 mmol/L (-2.0-2.0); BG CARBOXYHEMOGLOBIN 0.2 % (0.5-1.5); BG DEOXYHEMOGLOBIN 0.5 % (0.0-5.0); BG HCO3 ACT 29.4 mmol/L (22.0-26.0); BG METHEMOGLOBIN 0.4 % (0.0-1.5); BG OXYGEN SATURATION 99.5 % (92.0-98.5); BG OXYHEMOGLOBIN 98.9 % (94.0-97.0); BG PCO2 44.9 mmHg (35.0-45.0); BG PH 7.434 (7.350-7.450); BG PO2 436.3 mmHg (75.0-100.0); BG SAMPLE SITE RIGHT RADIAL; BG TOTAL HEMOGLOBIN 13.8 g/dL (12.0-18.0); BG VENT MODE VENT - AC
[2020-06-20] MEDS: CLONIDINE 0.1MG TABLET PO PRN (19:50)
[2020-06-20] MEDS: ATORVASTATIN CALCIUM 40MG TABLET PO SCH (20:49)
[2020-06-21] VITALS (90 sets, daily range): BP systolic 92–178; BP diastolic 53–130
[2020-06-21] MEDS: DEXTROSE 5% WATER 1,000 ML IV SCH ×2 (00:02→10:38)
[2020-06-21] MEDS: NICARDIPINE 100 MG in SODIUM CHLORIDE 0.9% 60 ML IV PRN (00:48)
[2020-06-21] MEDS: IPRATROPIUM/ALBUTEROL 0.5-3(2.5)MG/3ML NEB HHN SCH ×4 (01:14→19:43)
[2020-06-21 05:10] LABS: HEMATOCRIT. 39.2 % (42.0-52.0); MEAN CORPUSCULAR VOLUME 93.5 fL (80.0-94.0); MEAN PLATELET VOLUME 10.1 fl (7.4-10.4); PLATELET 108 x1000/uL (130-400); RED BLOOD CELL COUNT 4.19 mill/uL (4.7-6.1); RED CELL DISTRIBUTION WIDTH 14.4 % (11.6-14.6)
[2020-06-21 05:18] LABS: CHLORIDE 115 mEq/L (98-107)
[2020-06-21] MEDS: METOCLOPRAMIDE HCL 10MG/2ML VIAL IV SCH ×3 (05:20→21:49)
[2020-06-21] MEDS: DEXAMETHASONE 10 MG/ML VIAL IV SCH ×4 (05:20→23:29)
[2020-06-21] MEDS: BLOOD SUGAR DIAGNOSTIC STRIP TEST SCH ×4 (05:21→23:41)
[2020-06-21] MEDS: PROPOFOL 10MG/ML 100ML 100 ML IV PRN ×2 (05:22→18:43)
[2020-06-21] MEDS: INSULIN LISPRO 100 UNITS/ML SUBCUT SCH ×4 (05:22→23:59)
[2020-06-21 05:26] LABS: PHOSPHORUS 3.6 mg/dL (2.5-4.9)
[2020-06-21] MEDS: CLONIDINE 0.2MG TABLET PO SCH ×3 (06:40→21:58)
[2020-06-21] MEDS: HYDRALAZINE HCL 50MG TABLET PO SCH ×3 (06:40→21:50)
[2020-06-21] MEDS ORDERED: SODIUM BICARBONATE 8.4% 1 MEQ/ML 50ML SYR IV ONE (07:00)
[2020-06-21] MEDS ORDERED: EPINEPHRINE 0.1MG/ML (1:10,000) 10ML SYR ONE (07:00)
[2020-06-21] MEDS ORDERED: CALCIUM CHLORIDE 1GM/10ML SYR IV ONE (07:00)
[2020-06-21] MEDS ORDERED: DOPAMINE 400MG/250ML PREMIX 250 ML IV PRN (07:30)
[2020-06-21] MEDS: ACETYLCYSTEINE 100MG/ML 10% VIAL 4ML INH SCH ×2 (07:51→14:20)
[2020-06-21] MEDS: PANTOPRAZOLE SODIUM 40 MG/VIAL IV SCH ×2 (08:30→17:10)
[2020-06-21] MEDS: LEVETIRACETAM 500MG PREMIX 100 ML IV SCH ×2 (08:31→20:37)
[2020-06-21 08:32] LABS: PLATELET ESTIMATE DECREASED
[2020-06-21] MEDS: THIAMINE HCL 100MG TABLET PO SCH (08:42)
[2020-06-21] MEDS: CLONIDINE 0.1MG TABLET PO PRN (10:20)
[2020-06-21] MEDS: AMLODIPINE 5MG TABLET PO SCH (10:20)
[2020-06-21] MEDS ORDERED: PROPOFOL 10MG/ML 100ML 100 ML IV PRN (19:15)
[2020-06-21] MEDS: ATORVASTATIN CALCIUM 40MG TABLET PO SCH (20:37)
[2020-06-22] VITALS (96 sets, daily range): BP systolic 89–193; BP diastolic 45–108
[2020-06-22] MEDS: NICARDIPINE 100 MG in SODIUM CHLORIDE 0.9% 60 ML IV PRN ×2 (01:39→12:41)
[2020-06-22] MEDS: ACETYLCYSTEINE 100MG/ML 10% VIAL 4ML INH SCH ×4 (01:57→20:10)
[2020-06-22] MEDS: IPRATROPIUM/ALBUTEROL 0.5-3(2.5)MG/3ML NEB HHN SCH ×4 (01:57→20:10)
[2020-06-22 05:15] LABS: HEMATOCRIT. 44.1 % (42.0-52.0); HEMOGLOBIN. 14.5 g/dL (14.0-18.0); MEAN CORPUSCULAR HEMOGLOBIN 30.6 pg (28.0-32.0); MEAN CORPUSCULAR VOLUME 92.8 fL (80.0-94.0); MEAN PLATELET VOLUME 11.2 fl (7.4-10.4); PLATELET 127 x1000/uL (130-400); RED BLOOD CELL COUNT 4.76 mill/uL (4.7-6.1); RED CELL DISTRIBUTION WIDTH 14.4 % (11.6-14.6)
[2020-06-22] MEDS: INSULIN LISPRO 100 UNITS/ML SUBCUT SCH ×4 (06:00→23:23)
[2020-06-22] MEDS: BLOOD SUGAR DIAGNOSTIC STRIP TEST SCH ×4 (06:06→23:22)
[2020-06-22] MEDS: DEXAMETHASONE 10 MG/ML VIAL IV SCH ×4 (06:06→23:22)
[2020-06-22] MEDS: METOCLOPRAMIDE HCL 10MG/2ML VIAL IV SCH ×3 (06:08→22:35)
[2020-06-22] MEDS: CLONIDINE 0.2MG TABLET PO SCH ×3 (06:47→22:35)
[2020-06-22] MEDS: HYDRALAZINE HCL 50MG TABLET PO SCH ×3 (06:48→22:35)
[2020-06-22] MEDS: THIAMINE HCL 100MG TABLET PO SCH (09:19)
[2020-06-22] MEDS: CLONIDINE 0.1MG TABLET PO PRN ×2 (09:19→20:29)
[2020-06-22] MEDS: LEVETIRACETAM 500MG PREMIX 100 ML IV SCH ×2 (09:20→20:29)
[2020-06-22] MEDS: AMLODIPINE 5MG TABLET PO SCH (09:20)
[2020-06-22] MEDS: PANTOPRAZOLE SODIUM 40 MG/VIAL IV SCH ×2 (09:20→17:27)
[2020-06-22 10:06] LABS: CHLORIDE 113 mEq/L (98-107)
[2020-06-22 10:31] LABS: PLATELET ESTIMATE NORMAL
[2020-06-22] MEDS ORDERED: PROPOFOL 10MG/ML 100ML 100 ML IV PRN (11:15)
[2020-06-22] MEDS: DEXTROSE 5% WATER 1,000 ML IV SCH (14:19)
[2020-06-22] MEDS: MEROPENEM 1,000 MG in SODIUM CHLORIDE 0.9% 100 ML IV SCH (17:27)
[2020-06-22] MEDS: ATORVASTATIN CALCIUM 40MG TABLET PO SCH (20:29)
[2020-06-23] VITALS (97 sets, daily range): BP systolic 88–184; BP diastolic 43–103
[2020-06-23] MEDS: NICARDIPINE 100 MG in SODIUM CHLORIDE 0.9% 60 ML IV PRN ×2 (01:14→12:44)
[2020-06-23] MEDS: IPRATROPIUM/ALBUTEROL 0.5-3(2.5)MG/3ML NEB HHN SCH ×4 (02:09→20:27)
[2020-06-23] MEDS: MEROPENEM 1,000 MG in SODIUM CHLORIDE 0.9% 100 ML IV SCH ×3 (02:26→17:01)
[2020-06-23 04:58] LABS: HEMATOCRIT. 36.7 % (42.0-52.0); HEMOGLOBIN. 12.2 g/dL (14.0-18.0); MEAN CORPUSCULAR HEMOGLOBIN 30.8 pg (28.0-32.0); MEAN CORPUSCULAR VOLUME 92.5 fL (80.0-94.0); MEAN PLATELET VOLUME 11.7 fl (7.4-10.4); PLATELET 119 x1000/uL (130-400); RED BLOOD CELL COUNT 3.97 mill/uL (4.7-6.1); RED CELL DISTRIBUTION WIDTH 14.2 % (11.6-14.6)
[2020-06-23 05:13] LABS: CHLORIDE 114 mEq/L (98-107)
[2020-06-23 05:20] LABS: PHOSPHORUS 3.4 mg/dL (2.5-4.9)
[2020-06-23] MEDS: DEXAMETHASONE 10 MG/ML VIAL IV SCH ×4 (05:53→23:29)
[2020-06-23] MEDS: METOCLOPRAMIDE HCL 10MG/2ML VIAL IV SCH ×3 (05:53→21:12)
[2020-06-23] MEDS: BLOOD SUGAR DIAGNOSTIC STRIP TEST SCH ×4 (05:54→23:29)
[2020-06-23] MEDS: HYDRALAZINE HCL 50MG TABLET PO SCH ×3 (05:54→21:13)
[2020-06-23] MEDS: CLONIDINE 0.2MG TABLET PO SCH ×3 (05:54→21:13)
[2020-06-23] MEDS: INSULIN LISPRO 100 UNITS/ML SUBCUT SCH ×4 (05:55→23:32)
[2020-06-23] MEDS: ACETYLCYSTEINE 100MG/ML 10% VIAL 4ML INH SCH (07:27)
[2020-06-23 07:38] LABS: BG BASE EXCESS 1.6 mmol/L (-2.0-2.0); BG CARBOXYHEMOGLOBIN 0.3 % (0.5-1.5); BG DEOXYHEMOGLOBIN 2.2 % (0.0-5.0); BG FRACTION INSPIRED OXYGEN 40; BG METHEMOGLOBIN 0.1 % (0.0-1.5); BG OXYGEN SATURATION 97.8 % (92.0-98.5); BG OXYHEMOGLOBIN 97.4 % (94.0-97.0); BG PCO2 35.7 mmHg (35.0-45.0); BG PH 7.464 (7.350-7.450); BG PO2 120.3 mmHg (75.0-100.0); BG SAMPLE SITE ALINE; BG TOTAL HEMOGLOBIN 12.4 g/dL (12.0-18.0); BG TOTAL RESPIRATORY RATE 14 b/min; BG VENT MODE VENT - AC
[2020-06-23] MEDS: AMLODIPINE 5MG TABLET PO SCH (08:07)
[2020-06-23] MEDS: PANTOPRAZOLE SODIUM 40 MG/VIAL IV SCH ×2 (08:07→16:13)
[2020-06-23] MEDS: THIAMINE HCL 100MG TABLET PO SCH (08:07)
[2020-06-23] MEDS: LEVETIRACETAM 500MG PREMIX 100 ML IV SCH ×2 (08:08→21:12)
[2020-06-23 09:30] LABS: PLATELET ESTIMATE DECREASED
[2020-06-23] MEDS: DEXTROSE 5% WATER 1,000 ML IV SCH (14:45)
[2020-06-23] MEDS: PROPOFOL 10MG/ML 100ML 100 ML IV PRN (16:14)
[2020-06-23] MEDS ORDERED: VANCOMYCIN 1500MG in DEXTROSE 5% WATER 250ML IV SCH (17:30)
[2020-06-23] MEDS: ATORVASTATIN CALCIUM 40MG TABLET PO SCH (21:13)
[2020-06-24] VITALS (98 sets, daily range): BP systolic 88–204; BP diastolic 44–110
[2020-06-24] MEDS: MEROPENEM 1,000 MG in SODIUM CHLORIDE 0.9% 100 ML IV SCH ×3 (01:21→19:05)
[2020-06-24] MEDS: PROPOFOL 10MG/ML 100ML 100 ML IV PRN (01:22)
[2020-06-24] MEDS: IPRATROPIUM/ALBUTEROL 0.5-3(2.5)MG/3ML NEB HHN SCH ×4 (02:17→21:28)
[2020-06-24] MEDS: NICARDIPINE 100 MG in SODIUM CHLORIDE 0.9% 60 ML IV PRN ×2 (03:13→12:51)
[2020-06-24] MEDS ORDERED: VANCOMYCIN 1 G PREMIX 200 ML IV SCH (05:00)
[2020-06-24] MEDS: INSULIN LISPRO 100 UNITS/ML SUBCUT SCH ×3 (05:51→17:27)
[2020-06-24] MEDS: HYDRALAZINE HCL 50MG TABLET PO SCH ×2 (05:52→13:03)
[2020-06-24] MEDS: CLONIDINE 0.2MG TABLET PO SCH ×3 (05:52→21:23)
[2020-06-24] MEDS: BLOOD SUGAR DIAGNOSTIC STRIP TEST SCH ×3 (05:52→17:27)
[2020-06-24] MEDS: METOCLOPRAMIDE HCL 10MG/2ML VIAL IV SCH ×3 (05:52→21:23)
[2020-06-24] MEDS: DEXAMETHASONE 10 MG/ML VIAL IV SCH ×3 (05:52→17:30)
[2020-06-24 05:57] LABS: HEMATOCRIT. 37.8 % (42.0-52.0); HEMOGLOBIN. 12.4 g/dL (14.0-18.0); MEAN CORPUSCULAR HEMOGLOBIN 30.9 pg (28.0-32.0); MEAN CORPUSCULAR VOLUME 93.9 fL (80.0-94.0); MEAN PLATELET VOLUME 11.2 fl (7.4-10.4); PLATELET 131 x1000/uL (130-400); RED BLOOD CELL COUNT 4.02 mill/uL (4.7-6.1); RED CELL DISTRIBUTION WIDTH 14.2 % (11.6-14.6)
[2020-06-24 06:00] LABS: PHOSPHORUS 3.2 mg/dL (2.5-4.9)
[2020-06-24] MEDS: ACETYLCYSTEINE 100MG/ML 10% VIAL 4ML INH SCH (08:00)
[2020-06-24] MEDS: PANTOPRAZOLE SODIUM 40 MG/VIAL IV SCH ×2 (08:04→17:30)
[2020-06-24] MEDS: LEVETIRACETAM 500MG PREMIX 100 ML IV SCH ×2 (08:04→21:22)
[2020-06-24] MEDS: THIAMINE HCL 100MG TABLET PO SCH (08:04)
[2020-06-24] MEDS: AMLODIPINE 5MG TABLET PO SCH (08:05)
[2020-06-24 08:12] LABS: PLATELET ESTIMATE NORMAL
[2020-06-24] MEDS: CLONIDINE 0.1MG TABLET PO PRN (10:32)
[2020-06-24] MEDS: ACETAMINOPHEN 650MG/20.3ML UDC GT PRN (12:50)
[2020-06-24] MEDS: DEXTROSE 5% WATER 1,000 ML IV SCH ×2 (15:06→17:33)
[2020-06-24] MEDS: HYDRALAZINE HCL 100MG TABLET PO SCH ×2 (15:28→21:23)
[2020-06-24] MEDS ORDERED: SODIUM CHLORIDE 0.9% 250 ML IV ONE (15:30)
[2020-06-24] MEDS: FENTANYL CITRATE/PF 1,000 MCG in SODIUM CHLORIDE 0.9% 80 ML IV PRN (16:57)
[2020-06-24] MEDS: SUCRALFATE 1 G/10 ML UDC PO SCH (17:29)
[2020-06-24] MEDS ORDERED: NITROPRUSSIDE 50 MG in DEXT 5% WATER 248 ML IV PRN (19:00)
[2020-06-24 21:14] LABS: INR 1.1; PROTHROMBIN TIME 11.4 sec (9.6-11.0)
[2020-06-24] MEDS: ATORVASTATIN CALCIUM 40MG TABLET PO SCH (21:23)
[2020-06-24] MEDS: VANCOMYCIN 750 MG PREMIX 150 ML IV SCH (22:09)
[2020-06-25] VITALS (103 sets, daily range): BP systolic 51–196; BP diastolic 42–109
[2020-06-25] MEDS: DEXAMETHASONE 10 MG/ML VIAL IV SCH ×3 (00:58→18:27)
[2020-06-25] MEDS: SUCRALFATE 1 G/10 ML UDC PO SCH ×5 (00:58→23:09)
[2020-06-25] MEDS: INSULIN LISPRO 100 UNITS/ML SUBCUT SCH ×5 (01:24→23:11)
[2020-06-25] MEDS: IPRATROPIUM/ALBUTEROL 0.5-3(2.5)MG/3ML NEB HHN SCH ×4 (02:11→19:50)
[2020-06-25] MEDS: MEROPENEM 1,000 MG in SODIUM CHLORIDE 0.9% 100 ML IV SCH ×3 (03:47→18:28)
[2020-06-25] MEDS: FENTANYL CITRATE/PF 1,000 MCG in SODIUM CHLORIDE 0.9% 80 ML IV PRN ×2 (04:19→13:44)
[2020-06-25] MEDS: METOCLOPRAMIDE HCL 10MG/2ML VIAL IV SCH ×4 (05:16→23:09)
[2020-06-25] MEDS: HYDRALAZINE HCL 100MG TABLET PO SCH ×3 (05:16→21:59)
[2020-06-25] MEDS: CLONIDINE 0.2MG TABLET PO SCH ×3 (05:16→21:59)
[2020-06-25 05:44] LABS: HEMATOCRIT. 34.1 % (42.0-52.0); HEMOGLOBIN. 11.1 g/dL (14.0-18.0); MEAN CORPUSCULAR HEMOGLOBIN 30.2 pg (28.0-32.0); MEAN CORPUSCULAR VOLUME 92.9 fL (80.0-94.0); MEAN PLATELET VOLUME 10.1 fl (7.4-10.4); PLATELET 166 x1000/uL (130-400); RED BLOOD CELL COUNT 3.67 mill/uL (4.7-6.1); RED CELL DISTRIBUTION WIDTH 14.2 % (11.6-14.6)
[2020-06-25 05:55] LABS: CHLORIDE 116 mEq/L (98-107)
[2020-06-25] MEDS: BLOOD SUGAR DIAGNOSTIC STRIP TEST SCH ×5 (06:00→23:04)
[2020-06-25 06:09] LABS: PHOSPHORUS 4.2 mg/dL (2.5-4.9)
[2020-06-25] MEDS ORDERED: AMLODIPINE 10MG TABLET PO SCH (09:00)
[2020-06-25] MEDS: NICARDIPINE 100 MG in SODIUM CHLORIDE 0.9% 60 ML IV PRN (09:07)
[2020-06-25] MEDS: VANCOMYCIN 750 MG PREMIX 150 ML IV SCH ×2 (09:07→20:53)
[2020-06-25] MEDS: PANTOPRAZOLE SODIUM 40 MG/VIAL IV SCH ×2 (09:07→17:21)
[2020-06-25] MEDS: AMLODIPINE 5MG TABLET PO SCH (09:08)
[2020-06-25] MEDS: THIAMINE HCL 100MG TABLET PO SCH (09:08)
[2020-06-25] MEDS: DIPHENHYDRAMINE 50MG/ML VIAL IV PRN (09:08)
[2020-06-25] MEDS: CLONIDINE 0.1MG TABLET PO PRN (09:08)
[2020-06-25] MEDS: LEVETIRACETAM 500MG PREMIX 100 ML IV SCH ×2 (09:58→20:14)
[2020-06-25] MEDS: DEXTROSE 5% WATER 1,000 ML IV SCH (13:26)
[2020-06-25] MEDS: NITROPRUSSIDE 50 MG in DEXT 5% WATER 248 ML IV PRN (13:47)
[2020-06-25] MEDS: DOCUSATE SODIUM SUGAR FREE 100MG/10ML UDC NG SCH (17:21)
[2020-06-25 17:41] LABS: PLATELET ESTIMATE NORMAL
[2020-06-25] MEDS: ATORVASTATIN CALCIUM 40MG TABLET PO SCH (20:53)
[2020-06-26] VITALS (103 sets, daily range): BP systolic 90–265; BP diastolic 45–142
[2020-06-26] MEDS: MEROPENEM 1,000 MG in SODIUM CHLORIDE 0.9% 100 ML IV SCH ×2 (01:39→11:17)
[2020-06-26] MEDS: IPRATROPIUM/ALBUTEROL 0.5-3(2.5)MG/3ML NEB HHN SCH ×2 (01:43→08:15)
[2020-06-26] MEDS: METOCLOPRAMIDE HCL 10MG/2ML VIAL IV SCH ×4 (05:47→23:42)
[2020-06-26] MEDS: HYDRALAZINE HCL 100MG TABLET PO SCH ×3 (05:47→21:35)
[2020-06-26] MEDS: DEXAMETHASONE 10 MG/ML VIAL IV SCH ×2 (05:47→11:20)
[2020-06-26] MEDS: SUCRALFATE 1 G/10 ML UDC PO SCH ×4 (05:48→23:42)
[2020-06-26] MEDS: BLOOD SUGAR DIAGNOSTIC STRIP TEST SCH ×4 (05:48→23:37)
[2020-06-26] MEDS: CLONIDINE 0.2MG TABLET PO SCH ×3 (05:48→22:32)
[2020-06-26] MEDS: INSULIN LISPRO 100 UNITS/ML SUBCUT SCH ×4 (05:48→23:38)
[2020-06-26 05:53] LABS: HEMATOCRIT. 32.7 % (42.0-52.0); HEMOGLOBIN. 10.9 g/dL (14.0-18.0); MEAN CORPUSCULAR HEMOGLOBIN 30.9 pg (28.0-32.0); MEAN CORPUSCULAR VOLUME 92.8 fL (80.0-94.0); MEAN PLATELET VOLUME 11.1 fl (7.4-10.4); PLATELET 171 x1000/uL (130-400); RED BLOOD CELL COUNT 3.53 mill/uL (4.7-6.1)
[2020-06-26 05:56] LABS: PHOSPHORUS 3.3 mg/dL (2.5-4.9)
[2020-06-26] MEDS: DEXTROSE 5% WATER 1,000 ML IV SCH (07:07)
[2020-06-26 08:00] LABS: PLATELET ESTIMATE NORMAL
[2020-06-26] MEDS: LEVETIRACETAM 500MG PREMIX 100 ML IV SCH ×3 (08:04→21:27)
[2020-06-26] MEDS: VANCOMYCIN 750 MG PREMIX 150 ML IV SCH (08:04)
[2020-06-26] MEDS: AMLODIPINE 5MG TABLET PO SCH (08:04)
[2020-06-26] MEDS: THIAMINE HCL 100MG TABLET PO SCH (08:04)
[2020-06-26] MEDS: PANTOPRAZOLE SODIUM 40 MG/VIAL IV SCH ×2 (08:04→18:28)
[2020-06-26] MEDS: DOCUSATE SODIUM SUGAR FREE 100MG/10ML UDC NG SCH (08:04)
[2020-06-26] MEDS: NITROPRUSSIDE 50 MG in DEXT 5% WATER 248 ML IV PRN ×2 (08:31→20:03)
[2020-06-26] MEDS: FENTANYL CITRATE/PF 1,000 MCG in SODIUM CHLORIDE 0.9% 80 ML IV PRN ×2 (08:32→21:52)
[2020-06-26] MEDS: IPRATROPIUM BROMIDE (0.02%) 0.5MG/2.5ML NEB HHN SCH ×2 (14:00→20:03)
[2020-06-26] MEDS ORDERED: LIDOCAINE HCL 2% JELLY 5ML MM ONE (17:15)
[2020-06-26] MEDS: ATORVASTATIN CALCIUM 40MG TABLET PO SCH (20:40)
[2020-06-27] VITALS (96 sets, daily range): BP systolic 92–271; BP diastolic 47–102
[2020-06-27] MEDS: NITROPRUSSIDE 50 MG in DEXT 5% WATER 248 ML IV PRN ×3 (00:29→12:04)
[2020-06-27] MEDS: ACETAMINOPHEN 650MG/20.3ML UDC GT PRN (01:00)
[2020-06-27 01:02] LABS: BG BASE EXCESS 1.1 mmol/L (-2.0-2.0); BG CARBOXYHEMOGLOBIN 0.3 % (0.5-1.5); BG DEOXYHEMOGLOBIN 2.1 % (0.0-5.0); BG FRACTION INSPIRED OXYGEN 40; BG HCO3 ACT 22.7 mmol/L (22.0-26.0); BG METHEMOGLOBIN 0.4 % (0.0-1.5); BG OXYGEN SATURATION 97.9 % (92.0-98.5); BG OXYHEMOGLOBIN 97.2 % (94.0-97.0); BG PCO2 27.3 mmHg (35.0-45.0); BG PH 7.538 (7.350-7.450); BG PO2 97.9 mmHg (75.0-100.0); BG SAMPLE SITE LEFT RADIAL; BG TOTAL HEMOGLOBIN 11.8 g/dL (12.0-18.0); BG VENT MODE VENT - AC
[2020-06-27] MEDS: MEROPENEM 1,000 MG in SODIUM CHLORIDE 0.9% 100 ML IV SCH ×3 (01:44→17:37)
[2020-06-27] MEDS: VANCOMYCIN 1 G PREMIX 200 ML IV SCH ×2 (02:20→20:09)
[2020-06-27] MEDS: IPRATROPIUM BROMIDE (0.02%) 0.5MG/2.5ML NEB HHN SCH ×4 (02:28→19:58)
[2020-06-27 05:38] LABS: HEMATOCRIT. 31.7 % (42.0-52.0); HEMOGLOBIN. 10.6 g/dL (14.0-18.0); MEAN CORPUSCULAR VOLUME 92.9 fL (80.0-94.0); MEAN PLATELET VOLUME 10.5 fl (7.4-10.4); PLATELET 174 x1000/uL (130-400); RED BLOOD CELL COUNT 3.42 mill/uL (4.7-6.1); RED CELL DISTRIBUTION WIDTH 13.8 % (11.6-14.6)
[2020-06-27] MEDS: INSULIN LISPRO 100 UNITS/ML SUBCUT SCH ×4 (05:39→23:31)
[2020-06-27] MEDS: BLOOD SUGAR DIAGNOSTIC STRIP TEST SCH ×4 (05:39→23:31)
[2020-06-27] MEDS: DEXTROSE 5% WATER 1,000 ML IV SCH (05:47)
[2020-06-27] MEDS: SUCRALFATE 1 G/10 ML UDC PO SCH ×4 (05:47→23:31)
[2020-06-27] MEDS: METOCLOPRAMIDE HCL 10MG/2ML VIAL IV SCH ×4 (05:47→23:31)
[2020-06-27 05:51] LABS: PHOSPHORUS 2.2 mg/dL (2.5-4.9)
[2020-06-27] MEDS: CLONIDINE 0.2MG TABLET PO SCH ×3 (06:00→21:53)
[2020-06-27] MEDS: HYDRALAZINE HCL 100MG TABLET PO SCH ×3 (06:11→21:53)
[2020-06-27] MEDS: FENTANYL CITRATE/PF 1,000 MCG in SODIUM CHLORIDE 0.9% 80 ML IV PRN ×2 (07:20→18:01)
[2020-06-27 07:21] LABS: PLATELET ESTIMATE NORMAL
[2020-06-27] MEDS ORDERED: MAGNESIUM HYDROXIDE 400MG/5ML 30ML UDC PO SCH (08:30)
[2020-06-27] MEDS: LEVETIRACETAM 500MG PREMIX 100 ML IV SCH ×2 (08:40→21:19)
[2020-06-27] MEDS: DEXAMETHASONE 10 MG/ML VIAL IV SCH (08:40)
[2020-06-27] MEDS: PANTOPRAZOLE SODIUM 40 MG/VIAL IV SCH ×2 (08:40→18:00)
[2020-06-27] MEDS: DOCUSATE SODIUM SUGAR FREE 100MG/10ML UDC NG SCH (08:41)
[2020-06-27] MEDS: THIAMINE HCL 100MG TABLET PO SCH (08:42)
[2020-06-27] MEDS: AMLODIPINE 5MG TABLET PO SCH ×2 (08:42→21:19)
[2020-06-27] MEDS: CLONIDINE 0.1MG TABLET PO PRN (08:42)
[2020-06-27] MEDS: DIPHENHYDRAMINE 50MG/ML VIAL IV PRN (08:46)
[2020-06-27] MEDS ORDERED: POTASSIUM PHOS,M-BASIC-D-BASIC 15 MMOL in DEXT 5% WATER 245 ML IV SCH (09:00)
[2020-06-27 10:02] LABS: BG BASE EXCESS 2.3 mmol/L (-2.0-2.0); BG CARBOXYHEMOGLOBIN 0.3 % (0.5-1.5); BG FRACTION INSPIRED OXYGEN 40; BG HCO3 ACT 27.7 mmol/L (22.0-26.0); BG METHEMOGLOBIN 0.2 % (0.0-1.5); BG OXYGEN SATURATION 88.9 % (92.0-98.5); BG OXYHEMOGLOBIN 88.5 % (94.0-97.0); BG PCO2 46.2 mmHg (35.0-45.0); BG PH 7.395 (7.350-7.450); BG PO2 56.6 mmHg (75.0-100.0); BG SAMPLE SITE LEFT RADIAL; BG TOTAL HEMOGLOBIN 11.6 g/dL (12.0-18.0); BG TOTAL RESPIRATORY RATE 18 b/min; BG VENT MODE VENT - AC
[2020-06-27] MEDS: MAGNESIUM HYDROXIDE 400MG/5ML 30ML UDC PO PRN (17:40)
[2020-06-27] MEDS: ATORVASTATIN CALCIUM 40MG TABLET PO SCH (21:19)
[2020-06-28] VITALS (96 sets, daily range): BP systolic 87–187; BP diastolic 44–93
[2020-06-28] MEDS: MEROPENEM 1,000 MG in SODIUM CHLORIDE 0.9% 100 ML IV SCH ×3 (01:21→18:18)
[2020-06-28] MEDS: IPRATROPIUM BROMIDE (0.02%) 0.5MG/2.5ML NEB HHN SCH ×4 (01:53→20:27)
[2020-06-28] MEDS: DEXTROSE 5% WATER 1,000 ML IV SCH ×2 (03:27→17:58)
[2020-06-28] MEDS: FENTANYL CITRATE/PF 1,000 MCG in SODIUM CHLORIDE 0.9% 80 ML IV PRN ×2 (05:05→13:02)
[2020-06-28] MEDS: METOCLOPRAMIDE HCL 10MG/2ML VIAL IV SCH ×4 (05:19→23:15)
[2020-06-28] MEDS: BLOOD SUGAR DIAGNOSTIC STRIP TEST SCH ×4 (05:20→23:11)
[2020-06-28] MEDS: INSULIN LISPRO 100 UNITS/ML SUBCUT SCH ×4 (05:20→23:11)
[2020-06-28] MEDS: SUCRALFATE 1 G/10 ML UDC PO SCH ×4 (05:20→23:31)
[2020-06-28 05:25] LABS: BASOPHILS % 0.3 % (0.0-2.0); EOSINOPHILS % 1.6 % (0.0-5.0); HEMOGLOBIN. 11.1 g/dL (14.0-18.0); LYMPHOCYTES % 8.7 % (20.0-50.0); MEAN CORPUSCULAR HEMOGLOBIN 30.9 pg (28.0-32.0); MEAN CORPUSCULAR VOLUME 92.2 fL (80.0-94.0); MEAN PLATELET VOLUME 10.8 fl (7.4-10.4); MONOCYTES % 3.5 % (2.0-8.0); NEUTROPHILS % 85.9 % (40.0-76.0); PLATELET 161 x1000/uL (130-400); RED BLOOD CELL COUNT 3.58 mill/uL (4.7-6.1); RED CELL DISTRIBUTION WIDTH 13.6 % (11.6-14.6)
[2020-06-28 05:30] LABS: CHLORIDE 111 mEq/L (98-107)
[2020-06-28 05:36] LABS: PHOSPHORUS 2.3 mg/dL (2.5-4.9)
[2020-06-28] MEDS: HYDRALAZINE HCL 100MG TABLET PO SCH ×3 (06:49→21:51)
[2020-06-28] MEDS: CLONIDINE 0.2MG TABLET PO SCH ×3 (06:49→22:20)
[2020-06-28] MEDS: AMLODIPINE 5MG TABLET PO SCH ×2 (09:00→20:07)
[2020-06-28] MEDS: DEXAMETHASONE 10 MG/ML VIAL IV SCH (10:01)
[2020-06-28] MEDS: DIPHENHYDRAMINE 50MG/ML VIAL IV PRN ×2 (10:01→18:19)
[2020-06-28] MEDS: DOCUSATE SODIUM SUGAR FREE 100MG/10ML UDC NG SCH (10:01)
[2020-06-28] MEDS: LEVETIRACETAM 500MG PREMIX 100 ML IV SCH ×2 (10:10→20:09)
[2020-06-28] MEDS: THIAMINE HCL 100MG TABLET PO SCH (10:10)
[2020-06-28] MEDS: PANTOPRAZOLE SODIUM 40 MG/VIAL IV SCH ×2 (10:11→13:57)
[2020-06-28] MEDS: CLONIDINE 0.1MG TABLET PO PRN (11:16)
[2020-06-28 11:39] LABS: BG BASE EXCESS 3.9 mmol/L (-2.0-2.0); BG CARBOXYHEMOGLOBIN 0.3 % (0.5-1.5); BG DEOXYHEMOGLOBIN 1.5 % (0.0-5.0); BG HCO3 ACT 28.9 mmol/L (22.0-26.0); BG METHEMOGLOBIN 0.3 % (0.0-1.5); BG OXYGEN SATURATION 98.5 % (92.0-98.5); BG OXYHEMOGLOBIN 97.9 % (94.0-97.0); BG PCO2 45.3 mmHg (35.0-45.0); BG PH 7.423 (7.350-7.450); BG PO2 147.4 mmHg (75.0-100.0); BG SAMPLE SITE RIGHT RADIAL; BG TOTAL HEMOGLOBIN 11.5 g/dL (12.0-18.0); BG VENT MODE VENT - AC
[2020-06-28] MEDS: VANCOMYCIN 1 G PREMIX 200 ML IV SCH (13:56)
[2020-06-28] MEDS: ATORVASTATIN CALCIUM 40MG TABLET PO SCH (20:06)
[2020-06-29] VITALS (81 sets, daily range): BP systolic 78–174; BP diastolic 42–103
[2020-06-29] MEDS: CLONIDINE 0.1MG TABLET PO PRN ×2 (01:30→09:11)
[2020-06-29] MEDS: FENTANYL CITRATE/PF 1,000 MCG in SODIUM CHLORIDE 0.9% 80 ML IV PRN ×2 (01:46→10:16)
[2020-06-29] MEDS: IPRATROPIUM BROMIDE (0.02%) 0.5MG/2.5ML NEB HHN SCH ×3 (01:51→14:49)
[2020-06-29] MEDS: MEROPENEM 1,000 MG in SODIUM CHLORIDE 0.9% 100 ML IV SCH ×3 (01:52→18:00)
[2020-06-29] MEDS: HYDRALAZINE HCL 100MG TABLET PO SCH ×2 (05:28→09:11)
[2020-06-29] MEDS: METOCLOPRAMIDE HCL 10MG/2ML VIAL IV SCH ×3 (05:28→18:18)
[2020-06-29] MEDS: CLONIDINE 0.2MG TABLET PO SCH ×2 (05:29→14:00)
[2020-06-29] MEDS: SUCRALFATE 1 G/10 ML UDC PO SCH ×3 (05:49→18:18)
[2020-06-29] MEDS: BLOOD SUGAR DIAGNOSTIC STRIP TEST SCH ×3 (05:49→18:14)
[2020-06-29] MEDS: INSULIN LISPRO 100 UNITS/ML SUBCUT SCH ×3 (05:49→18:00)
[2020-06-29 05:57] LABS: HEMATOCRIT. 34.2 % (42.0-52.0); HEMOGLOBIN. 11.4 g/dL (14.0-18.0); MEAN CORPUSCULAR HEMOGLOBIN 30.9 pg (28.0-32.0); MEAN CORPUSCULAR VOLUME 92.7 fL (80.0-94.0); RED BLOOD CELL COUNT 3.69 mill/uL (4.7-6.1); RED CELL DISTRIBUTION WIDTH 13.8 % (11.6-14.6)
[2020-06-29] MEDS: PANTOPRAZOLE SODIUM 40 MG/VIAL IV SCH ×2 (09:07→18:18)
[2020-06-29] MEDS: DOCUSATE SODIUM SUGAR FREE 100MG/10ML UDC NG SCH (09:07)
[2020-06-29] MEDS: MAGNESIUM HYDROXIDE 400MG/5ML 30ML UDC PO PRN (09:08)
[2020-06-29] MEDS: LEVETIRACETAM 500MG PREMIX 100 ML IV SCH (09:09)
[2020-06-29] MEDS: DIPHENHYDRAMINE 50MG/ML VIAL IV PRN (09:09)
[2020-06-29] MEDS: DEXAMETHASONE 10 MG/ML VIAL IV SCH (09:10)
[2020-06-29] MEDS: THIAMINE HCL 100MG TABLET PO SCH (09:10)
[2020-06-29] MEDS: AMLODIPINE 5MG TABLET PO SCH (09:11)
[2020-06-29] MEDS: DEXTROSE 5% WATER 1,000 ML IV SCH (09:12)
[2020-06-29] MEDS: VANCOMYCIN 1 G PREMIX 200 ML IV SCH (10:14)
[2020-06-29 10:35] LABS: MEAN PLATELET VOLUME 11.5 fl (7.4-10.4); PLATELET 146 x1000/uL (130-400); PLATELET ESTIMATE NORMAL
[2020-06-29 13:00] LABS: PHOSPHORUS 1.6 mg/dL (2.5-4.9)
== END 2020-06-29 19:10 | disposition short-term general hospital (02) | DRG 710 ==
LOC: ER 06:03 → EDBEDREQSVC 10:04 → EDBEDREQTM 10:04 → EDBEDREQ 10:04 → MICUSO 12:49 → EDBEDREQTM 12:58 → EDBEDREQ 12:58 → CVICU 06-10 21:53 → MICUNO 06-12 09:18
PROVIDERS: ADMIT Internal Medicine; ATTEND Internal Medicine
PROC: 0BH18EZ Insertion of Endotracheal Airway into Trachea, Via Natural or Artificial Opening Endoscopic (ICD-10-PCS; 2020-06-10)
PROC: 05HY33Z Insertion of Infusion Device into Upper Vein, Percutaneous Approach (ICD-10-PCS; 2020-06-10)
PROC: B54MZZA Ultrasonography of Right Upper Extremity Veins, Guidance (ICD-10-PCS; 2020-06-10)
PROC: 5A1955Z Respiratory Ventilation, Greater than 96 Consecutive Hours (ICD-10-PCS; principal; 2020-06-18)
PROC: 00N00ZZ Release Brain, Open Approach (ICD-10-PCS; 2020-06-18)
PROC: 00U207Z Supplement Dura Mater with Autologous Tissue Substitute, Open Approach (ICD-10-PCS; 2020-06-18)
DX: A41.9 Sepsis, unspecified organism (principal); J96.00 Acute respiratory failure, unspecified whether with hypoxia or hypercapnia; I16.1 Hypertensive emergency; I10 Essential (primary) hypertension; E72.20 Disorder of urea cycle metabolism, unspecified; I63.512 Cerebral infarction due to unspecified occlusion or stenosis of left middle cerebral artery; M62.82 Rhabdomyolysis; J69.0 Pneumonitis due to inhalation of food and vomit; G40.401 Other generalized epilepsy and epileptic syndromes, not intractable, with status epilepticus; K72.90 Hepatic failure, unspecified without coma; E87.0 Hyperosmolality and hypernatremia; G93.6 Cerebral edema; J15.0 Pneumonia due to Klebsiella pneumoniae; E43 Unspecified severe protein-calorie malnutrition; N17.0 Acute kidney failure with tubular necrosis; B49 Unspecified mycosis; E16.2 Hypoglycemia, unspecified; E78.00 Pure hypercholesterolemia, unspecified; E78.5 Hyperlipidemia, unspecified; E83.41 Hypermagnesemia; E87.8 Other disorders of electrolyte and fluid balance, not elsewhere classified; F14.129 Cocaine abuse with intoxication, unspecified; G93.2 Benign intracranial hypertension; I46.2 Cardiac arrest due to underlying cardiac condition; I47.2 Ventricular tachycardia; I48.0 Paroxysmal atrial fibrillation; I49.01 Ventricular fibrillation; I61.9 Nontraumatic intracerebral hemorrhage, unspecified; K92.2 Gastrointestinal hemorrhage, unspecified; N20.0 Calculus of kidney; E11.65 Type 2 diabetes mellitus with hyperglycemia; E03.9 Hypothyroidism, unspecified; N39.0 Urinary tract infection, site not specified; Z59.0 Homelessness; Z68.27 Body mass index [BMI] 27.0-27.9, adult; Z82.49 Family history of ischemic heart disease and other diseases of the circulatory system; Z79.899 Other long term (current) drug therapy; Z20.828 Contact with and (suspected) exposure to other viral communicable diseases
CPT/HCPCS: 36415; 36600; 70551; 71045; 74018; 76700; 76770; 76937; 80048; 80053; 80061; 80076; 80202; 80305; 80320; 81003; 82040; 82140; 82375; 82550; 82553; 82595; 82805; 82962; 83036; 83520; 83735; 83935; 84100; 84134; 84145; 84439; 84443; 84478; 84480; 85025; 85651; 86038; 86140; 86256; 86705; 86709; 86803; 87070; 87077; 87106; 87186; 87340; 87426; 93005; 93306; 93970; 94002; 94003; 94640; 95816; 95925; 95926; 95928; 95929; 95940; 96365; 99291; C1725; C9113; J0282; J0330; J0690; J1100; J1200; J1650; J1815; J1953; J2060; J2185; J2250; J2270; J2405; J2543; J2560; J2704; J2765; J2920; J3010; J3030; J3370; J3490; J7050; J7060; J7070; J7121; J7608; G0480